=== PATIENT | male | born 1945 | race Caucasian/White ===

== ENCOUNTER → 2024-07-26 09:27 | Outpatient (REF) | payer OTHER, SELFPAY | LOC: RCS 09:27 | PROVIDERS: ATTENDING PHYSICIAN Specialist; FAMILY PHYSICIAN Family Medicine | DX: Z01.818 Encounter for other preprocedural examination (principal) | CPT/HCPCS: 93005 ==

== ENCOUNTER 2025-04-05 06:08 | Day surgery (SDC) | payer OTHER, SELFPAY ==
[2025-04-03 14:06] VITALS: BMI 31.4
[2025-04-05] VITALS (9 sets, daily range): BP systolic 113–160; BP diastolic 47–90; BMI 31.4
[2025-04-05] MEDS: TYLENOL 1000 MG PO (07:02)
== END 2025-04-05 10:46 | disposition home or self-care (01) ==
LOC: SDS 06:08
PROVIDERS: ATTENDING PHYSICIAN Surgery; FAMILY PHYSICIAN Family Medicine
DX: K64.3 Fourth degree hemorrhoids (principal); K64.4 Residual hemorrhoidal skin tags
CPT/HCPCS: 46260; 36415; 93005